=== PATIENT | female | born 1995 | race Caucasian/White ===

== ENCOUNTER 2025-02-09 04:30 | Emergency (ER) | payer OTHER ==
[~2025-02-09] VITALS: Ht 162.6 cm; Wt 64.0 kg
[2025-02-09 04:40] VITALS: O2SAT 97
[2025-02-09 04:44] VITALS: BP 105/71; PULSE 71; RESP 16; TEMP 36.7; O2SAT 98
[2025-02-09 04:54] VITALS: TEMP 98
[2025-02-09] MEDS: ACETAMINOPHEN 325MG TABLET PO ONE (04:54)
[2025-02-09] MEDS ORDERED: NAPR-1176 MT (05:12)
== END 2025-02-09 06:29 | disposition home or self-care (01) ==
LOC: ER 04:30
DX: M79.675 Pain in left toe(s) (principal); R60.0 Localized edema; F31.9 Bipolar disorder, unspecified; Z79.1 Long term (current) use of non-steroidal anti-inflammatories (NSAID)
CPT/HCPCS: 73630; 99283